=== PATIENT | male | born 1950 | race Caucasian/White ===

== ENCOUNTER 2019-01-01 19:26 | Emergency (ER) | payer MEDICARE, OTHER ==
[~2019-01-01] VITALS: Ht 172.7 cm; Wt 87.3 kg
[~2019-01-01 19:26] MED LIST: OXYC5CAP2
--- NOTE | 2019-01-01 19:38 | NUR ---
ABRAHAM AVENDANO. PT FOUND ON CORNER. PT STATES HE TRIPPED ON HIS OWN FEET, FELL TO THE GROUND, VOMITTED, AND DENIES LOC. BYSTANDERS STATE HE HAD LOC. PT STATES HE'S BEEN DRINKING, AND DRINKS EVERY DAY, LAST DRINK 1 HOUR AGO. PT STATES HE HASN'T TAKEN COUMADIN IN A COUPLE MONTHS, HE DOESN'T KNOW WHY HE WAS TAKING IT. CONNECTED TO MONITORING. FALL PRECAUTIONS IN PLACE. CALL LIGHT IN REACH. AWAITING ORDERS AT THIS TIME.
[2019-01-01] MEDS ORDERED: DIPH,PERTUSS(ACELL),TET VAC/PF 0.5 ML IM-VACC ONE ×2 (20:00→20:21)
[2019-01-01] MEDS ORDERED: LIDOCAINE-MPF 1%, 5ML INFIL ONE (20:00)
[2019-01-01] MEDS ORDERED: LIDOCAINE-MPF 1%, 2ML ONE (20:21)
--- NOTE | 2019-01-01 20:25 | NUR ---
LIDOCAINE PULLED FOR PROVIDER ADMINISTRATION.
--- NOTE | 2019-01-01 20:38 | NUR ---
PT'S CHIN CLEANED BY EMT AND SUTURE SET UP FOR PROVIDER. PT RESTING COMFORTABLY ON GURNEY. CHHAYAN.
[2019-01-01 21:29] VITALS: BP 110/74
--- NOTE | 2019-01-01 21:33 | NUR ---
Patient/Caregiver given discharge instructions and they have confirmed that they understand the instructions. Patient ambulatory with steady gait.
== END 2019-01-01 21:38 | disposition home or self-care (01) ==
LOC: ED 21:30
DX: S01.81XA Laceration without foreign body of other part of head, initial encounter (principal); S06.9X9A Unspecified intracranial injury with loss of consciousness of unspecified duration, initial encounter; F10.229 Alcohol dependence with intoxication, unspecified; Y90.0 Blood alcohol level of less than 20 mg/100 ml; W01.0XXA Fall on same level from slipping, tripping and stumbling without subsequent striking against object, initial encounter; Y93.89 Activity, other specified; Y92.410 Unspecified street and highway as the place of occurrence of the external cause; Y99.8 Other external cause status
CPT/HCPCS: 12051; 70450; 90471; 90715

== ENCOUNTER 2019-04-09 20:19 | Emergency (ER) | payer MEDICARE ==
[~2019-04-09] VITALS: Ht 172.7 cm; Wt 80.0 kg
[~2019-04-09 20:19] MED LIST changes: +ASPI81TA45 PO; +ATOR40TA78 PO; +DILT240C55 PO; -OXYC5CAP2; +OXYC5CAP2 PO; +TAMS-11 PO
--- NOTE | 2019-04-09 20:32 | NUR ---
BIBA FROM [facility], +ETOH, FELL AND UNABLE TO GET UP. L ELBOW SKIN TEAR. PAIN ON INSPIRATION L RIBS. LOOSE NONPROD COUGH X "YEARS". DENIES SOB. RHONCHI THROUGHOUT. DENIES CP. NONMEDCOMPLIANT. DR PEREZ AT BEDSIDE FOR EVAL. BREATHALYZE .212. CALL RASMUSSEN IN REACH.
--- NOTE | 2019-04-09 20:52 | NUR ---
pt placed on 2 lnc desat 88 ra when snoozing. kobi in room for eval. pt has hx old strokes. oriented to person and event, thought he was in [place], doens't know what year. similar to orientation in h/p of 2019. report to candy haynes. as
--- NOTE | 2019-04-09 20:55 | NUR ---
received report from MORIAH Anderson. patient to X ray.
--- NOTE | 2019-04-09 21:37 | NUR ---
back from X ray and ultrasound. EKG done.
[2019-04-09] MEDS ORDERED: ASPIRIN 81 MG TABLET CHEW ONE (21:41)
[2019-04-09] MEDS ORDERED: ASPIRIN 81 MG TABLET CHEW PO ONE (22:00)
--- NOTE | 2019-04-09 23:56 | NUR ---
no sleeping,respiration unlabored.
[2019-04-10] MEDS ORDERED: ACETAMINOPHEN 500 MG TABLET ONE (00:39)
--- NOTE | 2019-04-10 00:54 | NUR ---
patient awake / alert and able to ambulate steady with cane. discharged with instruction. verbalized understanding.
[2019-04-10] MEDS ORDERED: ACETAMINOPHEN 500 MG TABLET PO ONE (01:00)
[2019-04-10 01:03] VITALS: BP 132/83
== END 2019-04-10 01:05 | disposition home or self-care (01) ==
LOC: ED 04-10 00:20
DX: S20.212A Contusion of left front wall of thorax, initial encounter (principal); S50.312A Abrasion of left elbow, initial encounter; I48.91 Unspecified atrial fibrillation; Z87.891 Personal history of nicotine dependence; Z90.89 Acquired absence of other organs; W19.XXXA Unspecified fall, initial encounter; Y93.89 Activity, other specified; Y92.89 Other specified places as the place of occurrence of the external cause; Y99.8 Other external cause status
CPT/HCPCS: 76700; 93005; 99284